=== PATIENT | male | born 1990 | race Hispanic/Latino ===

== ENCOUNTER → 2020-05-23 | Outpatient (CLI) | payer OTHER ==
[~2020-05-23] MED LIST: CELE100C PO; NEUR600T PO
[2020-05-23 17:10] LABS: COLLAGEN EPINEPHRINE 160 SECONDS (74-162)
== END ==
LOC: M LAB 16:15
PROVIDERS: ATTEND Physical Medicine & Rehabilitation
DX: M51.16 Intervertebral disc disorders with radiculopathy, lumbar region (principal); M48.07 Spinal stenosis, lumbosacral region; M51.17 Intervertebral disc disorders with radiculopathy, lumbosacral region

== ENCOUNTER 2020-12-04 08:53 | Emergency (ER) | payer OTHER ==
[~2020-12-04] VITALS: Ht 167.6 cm; Wt 89.2 kg
--- NOTE | 2020-12-04 09:17 | REP ---
INDICATION: CHEST PAIN COMPARISON: None. TECHNIQUE: Portable AP view of the chest FINDINGS: The mediastinum and cardiac silhouette are within normal limits for portable technique. The lung cherry are clear without acute consolidation, effusion, or pneumothorax. Skeletal structures are intact. IMPRESSION: No acute cardiopulmonary process appreciated. <Electronically signed by Ector Lo > 12/04/20 0913
[2020-12-04 09:42] LABS: BASO # 0.1 10^3/uL (0.0-0.2); BASO % 0.8 % (0.0-1.0); EOS % 0.3 % (0.0-3.0); HEMATOCRIT 47.5 % (42.0-52.0); HEMOGLOBIN 14.5 g/dl (13.5-17.5); LYMPH # 2.9 10^3/uL (1.5-5.0); LYMPH % 33.3 % (24.0-44.0); MEAN CORPUSCULAR HEMOGLOBIN 22.8 pg (27.0-33.0); MEAN CORPUSCULAR HGB CONC 30.5 g/dl (32.0-36.5); MEAN CORPUSCULAR VOLUME 74.7 fl (80.0-96.0); MONO # 0.7 10^3/uL (0.0-0.8); NEUTROPHILS % 56.9 % (36.0-66.0); PLATELET COUNT, AUTOMATED 379 10^3/uL (150-450); RED BLOOD COUNT 6.36 10^6/uL (4.30-6.10); WHITE BLOOD COUNT 8.8 10^3/uL (4.0-10.0)
--- OUTSIDE RECORDS SUMMARY | 2020-12-04 10:02 | CCD ---
Continuity of Care Document (CCD) Created on: 11/26/2020 Darwin Cleveland External Reference #: [id number] : 1990 Sex: Male Author Author Darwin Jiang Organization Unknown Address [address] [place] [id number] Phone [phone] Care Team Providers Care Intermediate Accountant Name Role Phone Curt Tatum PA-C AUTM [phone] Edvin Humphrey MD AUTM [phone] Problems Description No Information Available Social History Type Date Description Comments Sex Unknown Tobacco Use Start: Unknown Patient is a current smoker, smo kes some days Smoking Status Reviewed: 05/15/20 Patient is a current smoker, smokes some days Allergies, Adverse Reactions, Alerts Description No Known Drug Allergies Medications Active Medications SIG Qnty Indications Ordering Provide r Date Bactroban 2% Ointment apply a pea sized amount to nasal passages three times a day x 5d before surgery QS Goran Britt MD 07/30/2020 Hibiclens 4% Liquid use in shower once daily for 5 days before surgery 1units Goran Britt MD 07/30/2020 Oxycodone-Acetaminophen 5-325mg Ta blets 1- 2 tabs po q4-6h prn / post surgical pain ( Please DO Not Fill Until 08/06/20) 24tabs Goran Britt MD 07/30/2020 Gabapentin 300mg Capsules 1 tab po qhs for one week, then one tab po bid 90caps M51.27 Goran Britt MD 05/15/2020 Celebrex 200mg Capsules 1 by mouth every day with food, may increase to twice a day as needed 60caps M51.27 Olvin Michaud MD 05/15/2020 Immunizations Description No Information Available Vital Signs Date Vital Result Comment 07/07/2020 10:52am Body Temperature 96.2 F Height 66 inches 5'6" Weight 177.00 lb BMI (Body Mass Index) 28.6 kg/m2 05/21/2020 10:42am Body Temperature 97.5 F Height 66 inches 5'6" Weight 185.00 lb BMI (Body Mass Index) 29.9 kg/m2 Results Test Acquired Date Facility Test Result H/L Range Note Laboratory test finding 11/04/2020 In House Covid Rapid Testing NEGATIVE Procedures Date Code Description Status 07/07/2020 98023 X-Ray Spine Lumbosacral Bending Only 2 Or 3 Views Completed Medical Devices Description No Information Available Encounters Type Date Location Provider Dx Diagnosis Office Visit 09/03/2020 11:30a [place] Michael Power, P.A. 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, lumbosacral region Assessments Date Code Description Provider 11/26/2020 Z20.828 Contact with and (erwin spected) exposure to other viral communicable diseases Lab 11/26/2020 Z01.818 Encounter for other preprocedura l examination Lab 11/04/2020 Z20.828 Contact w and exposure to oth vi ral communicable diseases Olvin Michaud MD 09/18/2020 M47.27 Other spondylosis with radiculop athy, lumbosacral region ANA Long 09/18/2020 M51.37 Other intervertebral disc degene ration, lumbosacral region ANA Long 09/18/2020 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, lumbosacral region ANA Long 09/18/2020 M48.07 Spinal stenosis, lumbosacral reg ion ANA Long 09/03/2020 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, lumbosacral region Michael Power, P.A. 09/03/2020 M51.37 Other intervertebral disc degene ration, lumbosacral region Michael Power, P.A. 09/03/2020 M48.07 Spinal stenosis, lumbosacral reg ion Michael Power, P.A. 09/03/2020 M47.27 Other spondylosis with radiculop athy, lumbosacral region Michael Power, P.A. 08/04/2020 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, lumbosacral region Michael Power, P.A. 08/04/2020 M51.37 Other intervertebral disc degene ration, lumbosacral region Michael Power, P.A. 08/04/2020 M48.07 Spinal stenosis, lumbosacral reg ion Michael Power, P.A. 08/04/2020 M47.27 Other spondylosis with radiculop athy, lumbosacral region Michael Power, P.A. 07/07/2020 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, lumbosacral region Goran Britt MD 07/07/2020 M51.37 Other intervertebral disc degene ration, lumbosacral region Goran Britt MD 07/07/2020 M48.07 Spinal stenosis, lumbosacral reg ion Goran Britt MD 07/07/2020 M47.27 Other spondylosis with radiculop athy, lumbosacral region Goran Britt MD Plan of Treatment Future Appointment(s):* 12/15/2020 3:45 pm - ANA Long at [place] * 12/01/2020 8:00 am - Olvin Michaud MD at [facility] 09/18/2020 - ANA Long* M47.27 Other spondylosis with radiculopathy, lumbosacral region* Follow up:* 2 weeks after CARLOZ for results with [facility] * M51.37 Other intervertebral disc degeneration, lumbosacral region * 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, lumbosacral region * M48.07 Spinal stenosis, lumbosacral region Functional Status Description No Information Available Mental Status Description No Information Available Referrals Refer to Dr Reason for Referral Status Appt Date Goran Britt MD CARLOZ INJ'S([id number] AND [id number]) R ECEIVED WRITTEN AUTH TO SURGERY NT Created [address] [place] [address], [address] [place] [address] [phone] Goran Britt MD SURGERY PER [facility] APPROVAL FOR LS-SPINE (22518, 54711, 64123, 43928, 72818, 21653, 31097, AND 17707) TO SURGERY NT Created [address] [place] [address] [phone] Goran Britt MD DME PER [facility] WEB NO AUTH REQUIRED FOR [address] ([id number]) TO DEVON NT Created [address] [place] [address] [place] [address] [phone] Goran Britt MD CARLOZ INJ([id number]) PER [facility] HAS VIDHYA APPRO LAI TO SURGERY NT Created [address] [place] [address] [place] [address] [phone]
--- OUTSIDE RECORDS SUMMARY | 2020-12-04 10:02 | CCD ---
Author Author [facility] Organization [facility] Address Unknown Phone Unavailable Care Team Providers Care Certified Diabetes Educator Name Role Phone MCELHERAN, HARESH PA Unavailable Unavailable MCELHERAN, HARESH PA Unavailable Unavailable MCELHERAN, HARESH PA Unavailable Unavailable MCELHERAN, HARESH PA Unavailable Unavailable MCELHERAN, HARESH PA Unavailable Unavailable MCELHERAN, HARESH PA Unavailable Unavailable MCELHERAN, HARESH PA Unavailable Unavailable MCELHERAN, HARESH PA Unavailable Unavailable MCELHERAN, HARESH PA Unavailable Unavailable MCELHERAN, HARESH PA Unavailable Unavailable MCELHERAN, HARESH PA Unavailable Unavailable MCELHERAN, HARESH PA Unavailable Unavailable MCELHERAN, HARESH PA Unavailable Unavailable MCELHERAN, HARESH PA Unavailable Unavailable MCELHERAN, HARESH PA Unavailable Unavailable MCELHERAN, HARESH PA Unavailable Unavailable MCELHERAN, HARESH PA Unavailable Unavailable MCELHERAN, HARESH PA Unavailable Unavailable MCELHERAN, HARESH PA Unavailable Unavailable MCELHERAN, HARESH PA Unavailable Unavailable MCELHERAN, HARESH PA Unavailable Unavailable MCELHERAN, HARESH PA Unavailable Unavailable MCELHERAN, HARESH PA Unavailable Unavailable MCELHERAN, HARESH PA Unavailable Unavailable MCELAN, HARESH PA Unavailable Unavailable MCELHERAN, HARESH PA Unavailable Unavailable MCELHERAN, HARESH PA Unavailable Unavailable MCELHERAN, HARESH PA Unavailable Unavailable Anthony Britt MD Unavailable Unavailable Anthony Britt MD Unavailable Unavailable Anthony Britt MD Unavailable Unavailable Anthony Britt MD Unavailable Unavailable Anthony Britt MD Unavailable Unavailable Anthony Britt MD Unavailable Unavailable Anthony Britt MD Unavailable Unavailable Anthony Britt MD Unavailable Unavailable Anthony Britt MD Unavailable Unavailable Anthony Britt MD Unavailable Unavailable Britt, L Goran MD Unavailable Unavailable Britt, L Goran MD Unavailable Unavailable Britt, L Goran MD Unavailable Unavailable Britt, L Goran MD Unavailable Unavailable Britt, L Goran MD Unavailable Unavailable Britt, L Goran MD Unavailable Unavailable Britt, L Goran MD Unavailable Unavailable Britt, L Goran MD Unavailable Unavailable Britt, L Goran MD Unavailable Unavailable Britt, L Goran MD Unavailable Unavailable Britt, L Goran MD Unavailable Unavailable Britt, L Goran MD Unavailable Unavailable Britt, L Goran MD Unavailable Unavailable Britt, L Goran MD Unavailable Unavailable Britt, L Goran MD Unavailable Unavailable Britt, L Goran MD Unavailable Unavailable Britt, L Goran MD Unavailable Unavailable Britt, L Goran MD Unavailable Unavailable Britt, L Goran MD Unavailable Unavailable Britt, L Goran MD Unavailable Unavailable Britt, L Goran MD Unavailable Unavailable Britt, L Goran MD Unavailable Unavailable Britt, L Goran MD Unavailable Unavailable Britt, L Goran MD Unavailable Unavailable Britt, L Goran MD Unavailable Unavailable Britt, L Goran MD Unavailable Unavailable Britt, L Goran MD Unavailable Unavailable Britt, L Goran MD Unavailable Unavailable Britt, L Goran MD Unavailable Unavailable Britt, L Goran MD Unavailable Unavailable Britt, L Goran MD Unavailable Unavailable Britt, L Goran MD Unavailable Unavailable Britt, L Goran MD Unavailable Unavailable Britt, L Goran MD Unavailable Unavailable Britt, L Goran MD Unavailable Unavailable Britt, L Goran MD Unavailable Unavailable Britt, L Goran MD Unavailable Unavailable Re-disclosure Warning The records that you are about to access may contain information from federally-assisted alcohol or drug abuse programs. If such information is present, then the following federally mandated warning applies: This information has been disclosed to you from records protected by federal confidentiality rules (42 CFR part 2). The federal rules prohibit you from making any further disclosure of this information unless further disclosure is expressly permitted by the written consent of the person to whom it pertains or as otherwise permitted by 42 CFR part 2. A general authorization for the release of medical or other information is NOT sufficient for this purpose. The Federal rules restrict any use of the information to criminally investigate or prosecute any alcohol or drug abuse patient.The records that you are about to access may contain highly sensitive health information, the redisclosure of which is protected by Article 27-F of the [facility] Public Health law. If you continue you may have access to information: Regarding HIV / AIDS; Provided by facilities licensed or operated by the [facility] Office of Mental Health; or Provided by the [facility] Office for People With Developmental Disabilities. If such information is present, then the following [facility] mandated warning applies: This information has been disclosed to you from confidential records which are protected by state law. State law prohibits you from making any further disclosure of this information without the specific written consent of the person to whom it pertains, or as otherwise permitted by law. Any unauthorized further disclosure in violation of state law may result in a fine or alf sentence or both. A general authorization for the release of medical or other information is NOT sufficient authorization for further disc losure. Encounters Encounter Providers Location Date Indications Data Source(s ) Outpatient Attender: HARESH PEREZ Physical Therapy 09/03/2020 11:30:00 AM EDT [facility] ([facility] ) Office Visit Attender: Goran Britt MD Physical Therapy 2019 09:30:00 AM EDT [facility] Medications Medication Brand Name Start Date Product Form Dose Route Admi nistrative Instructions Pharmacy Instructions Status Indications Reaction Description Data Source(s) Acetaminophen 325 MG / Oxycodone Hydrochloride 5 MG Or al Tablet Oxycodone-Acetaminophen 07/30/2020 12:00:00 AM EDT ORAL active [facility] ([facility] ) chlorhexidine gluconate 40 MG/ML Medicated Liquid Soap [Hibi clens] Hibiclens 07/30/2020 12:00:00 AM EDT active [facility] ([facility] ) Mupirocin 0.02 MG/MG Topical Ointment [Bactroban] Bactroban 07/30/2020 12:00:00 AM EDT active [facility] ([facility] ) gabapentin 300 MG Oral Capsule Gabapentin 05/15/2020 12:00:00 AM EDT ORAL active [facility] ([facility] ) No Active Medications 05/15/2020 12:00:00 AM EDT completed [facility] ([facility] ) celecoxib 200 MG Oral Capsule [Celebrex] Celebrex 05/15/2020 12 :00:00 AM EDT ORAL active [facility] ([facility] ) 8 HR Acetaminophen 650 MG Extended Release Oral Tablet [Tyle nol] Tylenol 8 Hour 04/03/2020 12:00:00 AM EDT active [facility] ([facility]) Insurance Providers Payer name Policy type / Coverage type Policy ID Covered democrat ID Covered democrat's relationship to linda Policy Linda Plan Information KAYODE DAVIS ACTIVE DUTY [id number] Problems, Conditions, and Diagnoses Code Display Name Description Problem Type Effective Dates Data Source(s) 8033543 Lumbosacral radiculopathy Lumbosacral radiculopathy Pr oblem 04/03/2020 12:00:00 AM EDT [facility] ([facility]) [id number] Chronic low back pain Chronic low back pain Problem 04/03/2020 12:00:00 AM EDT [facility] ([facility]) Surgeries/Procedures Procedure Description Date Indications Data Source(s) Injec Anesthetic Agent/Steroid Trans Epidural Lumb/Sacral Si ngle 12/01/2020 12:00:00 AM EST [facility] ([facility] ) Injec Anesthetic Agent/Steroid Trans Epidural Lumb/Sacral Ea Addl 12/01/2020 12:00:00 AM EST [facility] ([facility] ) Epidurography Radiological Supervision & Interpretation 12/01/2020 12:00:00 AM EST [facility] ([facility] ) Moderate Sedation Services; Same Phys Intl 15 Mins; PT >= 5 Years 12/01/2020 12:00:00 AM EST [facility] ([facility]) X-Ray Spine Lumbosacral Bending Only 2 Or 3 Views 07/07/2020 12:00:00 AM EDT [facility] ([facility] ) Needle electromyography, each extremity, with related paraspinal areas, when performed, done with nerve conduction, amplitude and latency/velocity study; complete, five or more muscles studied, innervated by three or more nerves or four or more spinal levels (list separately in addition to the code for primary procedure). 04/03/2020 12:00:00 AM EDT [facility] T ([facility]) Needle electromyography, each extremity, with related paraspinal areas, when performed, done with nerve conduction, amplitude and latency/velocity study; complete, five or more muscles studied, innervated by three or more nerves or four or more spinal levels (list separately in addition to the code for primary procedure). 04/03/2020 12:00:00 AM EDT [facility] T ([facility]) [address]105 Nerve conduction studies 13 or more studies NEW 201204/03/2020 12:00:00 AM EDT [facility] ([facility]) Results ID Date Data Source [id number] 11/04/2020 04:12:00 PM EST [facility] ([facility] ) Name Value Range Interpretation Code Description Data Anabella rce(s) Supporting Document(s) Covid Rapid Testing Laboratory test result [facility] ([facility] ) ID Date Data Source [id number] 11/04/2020 12:00:00 AM EST [facility] Name Value Range Interpretation Code Description Data Anabella rce(s) Supporting Document(s) Covid Rapid Testing Negative [facility] This lab was ordered by [facility] and re ported by [facility]. ID Date Data Source [id number] 05/23/2020 04:33:00 PM EDT [facility] ([facility] ) Name Value Range Interpretation Code Description Data Anabella rce(s) Supporting Document(s) Collagen Epinephrine 160 s 74-162 [facility] ([facility] ) Results may be affected by platelet coun ts less than 150,000/mL or hematocrits less than 35%. If COL/EPI is NORMAL, COL/ADP is not performed. Result Interpretation: COL/EPI COL/ADP NORMAL NORMAL NORMAL ASA ABNORMAL NORMAL vWD ABNORMAL NORMAL GLANZMANN'S ABNORMAL ABNORMAL THROMBASTHENIA POSSIBLE DRUG ABNORMAL ABNORMAL EFFECT Procedure Vital Signs ID Date Data Source UNK Name Value Range Interpretation Code Description Data Source(s) Body mass index (BMI) [Ratio] 28.6 kg/m2 28.6 k g/m2 [facility] ([facility] ) Body weight 177.00 [lb_av] 177.00 [lb_av] [facility] T ([facility] ) Body height 66 [in_i] 66 [in_i] [facility] ([facility] ) 5'6" Body temperature 96.2 [degF] 96.2 [degF] [facility] ([facility] ) Body mass index (BMI) [Ratio] 29.9 kg/m2 29.9 k g/m2 [facility] ([facility] ) Body weight 185.00 [lb_av] 185.00 [lb_av] [facility] T ([facility] ) Body height 66 [in_i] 66 [in_i] [facility] ([facility] ) 5'6" Body temperature 97.5 [degF] 97.5 [degF] [facility] ([facility] ) Body mass index (BMI) [Ratio] 28.6 kg/m2 28.6 k g/m2 [facility] ([facility] ) Body weight 177.00 [lb_av] 177.00 [lb_av] FIOR Manuel ([facility] ) Body height 66 [in_i] 66 [in_i] [facility] ([facility] ) 5'6" Body temperature 98.2 [degF] 98.2 [degF] [facility] ([facility] ) Body mass index (BMI) [Ratio] 28.6 kg/m2 28.6 k g/m2 [facility] ([facility] Body weight 177.00 [lb_av] 177.00 [lb_av] FIOR Manuel ([facility] ) Body height 66 [in_i] 66 [in_i] SHAUN ([facility] ) 5'6" Heart rate 72 /min 72 /min SHAUN ([facility] ) Diastolic blood pressure 80 mm[Hg] 80 mm[Hg] SHAUN ([facility] ) Systolic blood pressure 120 mm[Hg] 120 mm[Hg] Ayad MAI ([facility] )
--- OUTSIDE RECORDS SUMMARY | 2020-12-04 10:02 | CCD ---
Continuity of Care Document (CCD) Created on: 09/15/2020 Darwin Cleveland External Reference #: [id number] : 1990 Sex: Male Author Darwin Lorenz Organization Unknown Address [address] [place] [address], [address] [address] Phone [phone] Problems Description No Information Available Social History [...] Please DO Not Fill Until 08/06/20) 24tabs Gorna Britt MD 07/30/2020 Gabapentin 300mg Capsules 1 tab po qhs for one week, then one tab po bid 90caps M51.27 Goran Britt MD 05/15/2020 Celebrex 200mg Capsules 1 by mouth every day with food 30caps M51.27 Goran Britt MD 05/15/2020 History Medications No Active Medications Unknown 07/2020 - 05/15/2020 Immunizations Description No Information Available Vital Signs Date Vital Result Comment 07/07/2020 10:52am Body Temperature 96.2 F Height 66 inches 5'6" Weight 177.00 lb BMI (Body Mass Index) 28.6 kg/m2 05/21/2020 10:42am Body Temperature 97.5 F Height 66 inches 5'6" Weight 185.00 lb BMI (Body Mass Index) 29.9 kg/m2 Results Test Acquired Date Facility Test Result H/L Range Note Platelet Function Analysis 05/23/2020 [facility] [address] [place] [address] (315)- - Collagen Epinephrine 160 seconds Normal 74-162 1 1 Results may be affected by p latelet counts less than 150,000/mL or hematocrits less than 35%. If COL/EPI is NORMAL, COL/ADP is not performed. Result Interpretation: COL/EPI COL/ADP NORMAL NORMAL NORMAL ASA ABNORMAL NORMAL vWD ABNORMAL NORMAL GLANZMANN'S ABNORMAL ABNORMAL THROMBASTHENIA POSSIBLE DRUG ABNORMAL ABNORMAL EFFECT Procedures Date Code Description Status 07/07/2020 94491 X-Ray Spine Lumbosacral Bending Only 2 Or 3 Views Completed Medical Devices Description No Information Available Encounters Type Date Location Provider Dx Diagnosis Office Visit 09/03/2020 11:[place] [facility] 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 09/03/2020 M51.37 Other intervertebral disc degene ration, lumbosacral region Michael Power, P.A. 09/03/2020 M48.07 Spinal stenosis, lumbosacral reg ion Mcihael Power, P.A. 09/03/2020 M47.27 Other spondylosis with radiculop athy, lumbosacral region Michael Power P.A. 08/04/2020 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, lumbosacral region Radha Helm.A. 08/04/2020 M51.37 Other intervertebral disc degene ration, [...] radiculop athy, lumbosacral region Goran Britt MD 05/21/2020 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, lumbosacral region Olvin Mc MD 05/21/2020 M51.37 Other intervertebral disc degene ration, lumbosacral region Olvin Mc MD 05/21/2020 M48.07 Spinal stenosis, lumbosacral reg ion Olvin Mc MD 05/21/2020 M54.16 Radiculopathy, lumbar region How edilberto Mc MD 05/15/2020 M54.16 Radiculopathy, lumbar region Lobito Britt MD 05/15/2020 M47.896 Other spondylosis, lumbar region Goran Britt MD Plan of Treatment Future Appointment(s):* 09/18/2020 2:00 pm - ANA Long at [place] 09/03/2020 - Michael Power, P.A.* 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, lumbosacral region* New Orders:* Referral, Ordered: 09/03/20 * Follow up:* with [facility] or [facility] after CARLOZ injections for results per MK * M51.37 Other intervertebral disc degeneration, lumbosacral region * M48.07 Spinal stenosis, lumbosacral region * M47.27 Other spondylosis with radiculopathy, lumbosacral region Functional Status Description No Information Available Mental Status Description No Information Available Referrals Refer to Dr Reason for Referral Status Appt Date Goran Britt MD SURGERY PER [facility] APPROVAL FOR LS-SPINE (37461, 30728, 38310, 20078, 55714, 00958, 03556, AND 36519) TO SURGERY NT Created [facility] [place] [address] [phone] Goran Britt [facility] NO AUTH REQUIRED FOR [facility]IST[facility] [address] ([id number]) TO DEVON NT Created [address] [place] [address] [phone] Goran Britt MD CARLOZ INJ([id number]) PER [facility] HAS VIDHYA APPRO LAI TO SURGERY NT Created [address] [place] [address] [phone] Olvin Mc MD REFERRAL FOR DR. MC FOR CARLOZ EVAL, PAS SING TO TRANS. LM Created [address] [place] [phone] Goran Britt MD CHRONIC LBP, RLE RADICULOPATHY Created [address] [place] [address] [phone] Goran Britt MD CHRONIC LBP, RLE RADICULOPATHY Created [address] [place] [address] [phone]
--- OUTSIDE RECORDS SUMMARY | 2020-12-04 10:02 | CCD ---
Continuity of Care Document (CCD) Created on: 12/02/2020 Darwin Cleveland External Reference #: [id number] : 1990 Sex: Male Author Author Darwin MC MD Organization Unknown Address [address] [place] [address], [address] [place] [address] Phone [phone] Care Team Providers Care Associate Artistic Director Name Role Phone Curt Tatum PA-C AUTM [phone] Edvin Humphrey MD AUTM [phone] Problems Description No Information Available Social History [...] a day as needed 60caps M51.27 Olvin Mc MD 05/15/2020 Immunizations Description No Information Available [...] Testing NEGATIVE Procedures Date Code Description Status 12/01/2020 15412 Moderate Sedation Se rvices; Same Phys Intl 15 Mins; PT >= 5 Years Completed 12/01/2020 47725 Epidurography Radiological Super vision & Interpretation Completed 12/01/2020 49828 Injec Anesthetic Age nt/Steroid Trans Epidural Lumb/Sacral Ea Addl Completed 12/01/2020 69277 Injec Anesthetic Age nt/Steroid Trans Epidural Lumb/Sacral Single Completed 07/07/2020 86862 X-Ray Spine Lumbosacral Bending Only 2 Or 3 Views Completed Medical Devices Description No Information Available Encounters Type Date Location Provider Dx Diagnosis Office Visit 09/03/2020 11:30a [facility] 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, lumbosacral region Assessments Date Code Description Provider 12/01/2020 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, lumbosacral region Olvin Mc MD 12/01/2020 M48.07 Spinal stenosis, lumbosacral reg ion Olvin Mc MD 11/26/2020 Z20.828 Contact with and (erwin spected) exposure to other viral communicable diseases Olvin Mc MD 11/26/2020 Z20.828 Contact with and (erwin spected) exposure to other viral communicable diseases Lab 11/26/2020 Z01.818 Encounter for other preprocedura l examination Olvin Mc MD 11/26/2020 Z01.818 Encounter for other preprocedura l examination Lab 11/04/2020 Z20.828 Contact w and exposure to oth vi ral communicable diseases Olvin Mc MD 09/18/2020 M47.27 Other spondylosis with radiculop athy, lumbosacral region Ronald Arreolana, PA 09/18/2020 M51.37 Other intervertebral disc degene ration, lumbosacral region Ronald Higgins, PA 09/18/2020 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, lumbosacral region Ronald Arreolana, PA 09/18/2020 M48.07 Spinal stenosis, lumbosacral reg ion Ronald Higgins, PA 09/03/2020 M51.27 Other intervertebral disc displa cement, [...] 12/15/2020 3:45 pm - [facility] at [place] 09/18/2020 - ANA Long* M47.27 Other spondylosis [...] Status Appt Date Goran Britt MD CARLOZ INJ'S([id number] AND [id number]) R ECEIVED WRITTEN AUTH TO SURGERY NT Created [address] [place] [address] [phone] Goran Britt MD SURGERY PER [facility] APPROVAL FOR LS-SPINE ([id number], 46475, 18366, 15515, 01436, 66966, 44347, AND 93616) TO SURGERY NT Created [address] [place] [address] [phone] Goran Britt MD DME PER [facility] WEB NO AUTH REQUIRED FOR [address] ([id number]) TO DEVON NT Created [address] [place] [address] [phone]
--- OUTSIDE RECORDS SUMMARY | 2020-12-04 10:02 | CCD | Continuity of Care Document ---
Author Author Darwin Jiang Organization Unknown Address [address] [place] [address] Phone [phone] Care Team Providers Care Slitter Creaser Slotter Helper Name Role Phone Curt Tatum PA-C AUTM [phone] Edvin Humphrey MD AUTM [phone] Problems Description No Information Available Social History [...] NEGATIVE Procedures Date Code Description Status 07/07/2020 63535 X-Ray Spine Lumbosacral Bending Only 2 Or 3 Views Completed Medical Devices Description No Information Available Encounters Type Date Location Provider Dx Diagnosis Office Visit 09/03/2020 11:30a [place] [facility], P.A. 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, lumbosacral region Assessments Date Code Description Provider 11/26/2020 Z20.828 Contact with and (erwin spected) exposure to other viral communicable diseases Olvin Michaud MD 11/26/2020 Z20.828 Contact with and (erwin spected) exposure to other viral communicable diseases Lab 11/26/2020 Z01.818 Encounter for other preprocedura l examination Olvin Michaud MD 11/26/2020 Z01.818 Encounter for other preprocedura [...] 12/15/2020 3:45 pm - [facility] at [place] * 12/01/2020 8:00 am - Olvin Michaud MD at Surgery [facility] 09/18/2020 - ANA Long* M47.27 Other spondylosis with radiculopathy, lumbosacral region* Follow up:* 2 weeks after CARLOZ for results with [facility] * M51.37 Other intervertebral disc degeneration, lumbosacral region * 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, lumbosacral region * M48.07 Spinal stenosis, lumbosacral region Functional Status Description No Information Available Mental Status Description No Information Available Referrals Refer to Reason for Referral Status Appt Date Goran Britt MD CARLOZ INJ'S([id number] AND [id number]) R ECEIVED WRITTEN AUTH TO SURGERY NT Created [address] [place] [address] [phone] Goran Britt MD SURGERY PER [facility] APPROVAL FOR LS-SPINE (82547, 82514, 24712, 03724, 36497, 42135, 27761, AND 49935) TO SURGERY NT Created [address] [place] [address] [phone] Goran Britt MD DME PER [facility] WEB NO AUTH REQUIRED FOR [address] ([id number]) TO DEVON NT Created [address] [place] [address] [phone] Goran Britt MD CARLOZ INJ([id number]) PER [facility] VINELANDA HAS VIDHYA APPRO LAI TO SURGERY NT Created [address] [place] [address] [phone]
[2020-12-04 10:04] LABS: ALBUMIN 4.5 GM/DL (3.2-5.2); ALT/SGPT 39 U/L (12-78); BILIRUBIN,DIRECT 0.1 MG/DL (0.0-0.2); BILIRUBIN,TOTAL 0.6 MG/DL (0.2-1.0); BLOOD UREA NITROGEN 16 MG/DL (7-18); CALCIUM LEVEL 9.7 MG/DL (8.5-10.1); CARBON DIOXIDE LEVEL 24 MEQ/L (21-32); CHLORIDE LEVEL 105 MEQ/L (98-107); CREATININE FOR GFR 0.96 MG/DL (0.70-1.30); GLOMERULAR FILTRATION RATE > 60.0 (>60); GLUCOSE, FASTING 106 MG/DL (70-100); LIPASE 124 U/L (73-393); POTASSIUM SERUM 4.1 MEQ/L (3.5-5.1); SODIUM LEVEL 140 MEQ/L (136-145); TOTAL PROTEIN 8.1 GM/DL (6.4-8.2)
[2020-12-04 10:05] LABS: CK-MB VALUE MASS < 1.0 NG/ML (<3.6); CPK CREATINE PHOSPHOKINASE 228 U/L (39-308); MB/CK RELATIVE INDEX 0.44 (< OR =4); TROPONIN I < 0.02 NG/ML (< 0.10)
[2020-12-04] MEDS ORDERED: KETOROLAC 30 MG/ML 1ML VIAL IV ONE (10:15)
[2020-12-04 11:38] VITALS: BP 120/68
--- NOTE | 2020-12-04 20:27 | ECGEPIP ---
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
== END 2020-12-04 11:39 | disposition home or self-care (01) ==
LOC: M ED 08:53
DX: R07.89 Other chest pain (principal); M54.9 Dorsalgia, unspecified
CPT/HCPCS: 36415; 71045; 80048; 80076; 82550; 82553; 83690; 84484; 85025; 93005; 93041; 94760; 96374; 99285; J1885

== ENCOUNTER → 2021-01-09 | Outpatient (CLI) | payer OTHER ==
--- NOTE | 2021-01-09 08:10 | REPVR ---
PROCEDURE INFORMATION: Exam: MR Lumbar Spine Without Contrast Exam date and time: 01/09/2021 7:37 AM Age: 30 years old Clinical indication: Patient HX: PT states priors [place] low back pain; Additional info: Oth disc displacement, R/O hnp, stenosis TECHNIQUE: Imaging protocol: Multiplanar magnetic resonance images of the lumbar spine without intravenous contrast. COMPARISON: No relevant prior studies available. FINDINGS: Vertebrae: There is no fracture or listhesis. Marrow signal is within normal limits. Spinal cord: Normal signal. No cord compression. L1-L2: No significant disc disease. No significant spinal canal stenosis. No neural foraminal stenosis. L2-L3: No significant disc disease. No significant spinal canal stenosis. No neural foraminal stenosis. L3-L4: No significant disc disease. No significant spinal canal stenosis. No neural foraminal stenosis. L4-L5: There is diffuse disc bulging with a superimposed shallow central protrusion. This indents the ventral thecal sac, contributing to mild canal stenosis. There is mild facet and ligamentous hypertrophy. Trace fluid is noted within the facet joints. There is mild bilateral neural foraminal narrowing. L5-S1: There is diffuse disc bulging with a superimposed 8 mm right paracentral disc extrusion. This is indents the ventral thecal sac, resulting in moderate to severe canal stenosis. This narrows the right lateral recess and comes into close contact with the right L5 nerve root. There is mild facet hypertrophy. There is mild bilateral neural foraminal narrowing. Soft tissues: Unremarkable. IMPRESSION: Degenerative disc disease and spondylosis as described. At L5/S1, right paracentral disc extrusion contributes to moderate to severe canal stenosis and comes into close contact with the right S1 nerve root. Electronically signed by: Karen Guthrie On 01/09/2021 08:11:01 AM
== END ==
LOC: M RAD 06:17
PROVIDERS: ATTEND Physician Assistant
DX: 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, lumbosacral region (principal)

== ENCOUNTER 2021-06-23 09:24 | Emergency (ER) | payer OTHER ==
[~2021-06-23] VITALS: Ht 167.6 cm; Wt 81.8 kg
[2021-06-23] MEDS ORDERED: LYRI200C PO (09:35)
[2021-06-23] MEDS ORDERED: ACETAMINOPHEN 325 MG TAB PO ONE (12:05)
[2021-06-23] MEDS ORDERED: KETOROLAC 30 MG/ML 1ML VIAL IM ONE (12:05)
[2021-06-23] MEDS ORDERED: KETO10TAB PO (13:25)
[2021-06-23 14:03] VITALS: BP 117/72
== END 2021-06-23 14:07 | disposition home or self-care (01) ==
LOC: M ED 09:24
DX: M51.36 Other intervertebral disc degeneration, lumbar region (principal)
CPT/HCPCS: 96372; 99283; J1885